=== PATIENT | female | born 1975 | race Caucasian/White ===

== ENCOUNTER → 2021-12-13 15:21 | Outpatient (CLI) | payer BC, SELFPAY ==
--- NOTE | ~2021-12-13 | US_ITS ---
EXAMINATION: US pelvic complete DATE: 12/13/2021 15:42 INDICATION: Pelvic and perineal pain Comparison:No prior studies for comparison. TECHNIQUE: Multiple transabdominal and endovaginal sonographic images of the pelvis performed. FINDINGS: The uterus is surgically absent. The right ovary is not visualized. The left ovary measures 3.8 x 2.4 x 2.4 cm. There is a minimally c omplicated left ovarian cyst measuring 2.8 x 2.3 x 2.1 cm. There are follicular changes of the left o vary.. There is no free fluid in the pelvis. There are no abnormal masses seen on either side. IMPRESSION: 1. Minimally complicated 2.8 cm left ovarian cyst containing low-level internal echoes. Reviewed, dictated and finalized at location A.
== END ==
PROVIDERS: PCP Family Medicine; Visit Provider Family Medicine
DX: R10.2 Pelvic and perineal pain (principal); N83.202 Unspecified ovarian cyst, left side
CPT/HCPCS: 76856

== ENCOUNTER 2021-12-21 08:05 | Outpatient (CLI) | payer BC, SELFPAY ==
[2021-12-21 08:25] LABS: Basophils Absolute Auto 0.1 K/mm3 (0.0-0.1); Basophils Percent Auto 0.8 % (0.2-1.2); Eosinophils Absolute Auto 0.1 K/mm3 (0-0.3); Eosinophils Percent Auto 1.9 % (0-4.4); Hematocrit 39.2 % (37.0-47.0); Hemoglobin 13.2 g/dL (12.0-15.0); Immature Granulocyte Absolute 0.02 K/mm3 (0.00-0.031); Immature Granulocyte Percent A 0.3 % (0-0.5); Lymphocytes Absolute Auto 2.68 K/mm3 (0.9-3.2); Lymphocytes Percent Auto 37.1 % (18.3-44.2); Mean Corpuscular HGB Conc 33.7 g/dl (32-36); Mean Corpuscular Hemoglobin 31.7 pg (26-34); Monocytes Absolute Auto 0.6 K/mm3 (0.1-0.6); Monocytes Percent Auto 7.6 % (2.6-8.5); Neutrophils Absolute Auto 3.8 K/mm3 (1.3-6.7); Neutrophils Percent Auto 52.3 % (45.5-73.1); Platelet Count Result 297 k/mm3 (150-375); Red Blood Count 4.17 M/mm3 (4.2-5.4); Red Cell Distribution Width 11.6 % (11.5-14.5); White Blood Count 7.2 K/mm3 (4.5-10.0)
[2021-12-21 08:37] LABS: Alanine Aminotransferase 27 U/L (6-35); Albumin Level 4.3 g/dL (3.5-5.1); Alkaline Phosphatase 75 U/L (38-126); Anion Gap 8 mmol/L (8-16); Aspartate Amino Transferase 27 U/L (14-36); Bilirubin,Total 0.7 mg/dL (0.2-1.3); Blood Urea Nitrogen 11 mg/dL (7-17); Calcium 9.1 mg/dL (8.4-10.2); Carbon Dioxide 27 mmol/L (22-30); Chloride 105 mmol/L (98-107); Cholesterol 183 mg/dL (0-200); Estimated Glomerular Filt Rate > 60; Glucose 97 mg/dL (65-110); HDL Direct 39 mg/dL; Potassium 4.2 mmol/L (3.4-5.0); Sodium 140 mmol/L (137-145); Triglycerides 77 mg/dL (<150)
[2021-12-21 08:47] LABS: LDL Cholesterol Direct 111 mg/dL
== END 2021-12-21 08:06 | disposition home or self-care (01) ==
PROVIDERS: PCP Family Medicine; Visit Provider Family Medicine
DX: Z00.00 Encounter for general adult medical examination without abnormal findings (principal)
CPT/HCPCS: 36415; 80053; 80061; 85025

== ENCOUNTER → 2022-05-30 09:53 | Outpatient (CLI) | payer BC, SELFPAY ==
--- NOTE | ~2022-05-30 | US_ITS ---
Pelvic ultrasound. Clinical History: Left ovarian cyst Technique: Realtime transabdominal and transvaginal scanning of the pelvis was performed. Color flow Doppler and Doppler spectral analysis were performed. Findings: The uterus is absent, compatible prior hysterectomy. The right ovary measures 2.9 x 2.0 x 2.4 cm. No significant right ovarian or adnexal mass is seen. The left ovary measures 2.4 x 2.3 x 2.1 cm. No significant left ovarian or adnexal mass is seen. There is no evidence of free fluid in the cul de sac. Impression: Status post hysterectomy, otherwise unremarkable exam. Reviewed, dictated and finalized at location . Impression: Status post hysterectomy, otherwise unremarkable exam.
== END ==
PROVIDERS: PCP Family Medicine; Visit Provider Obstetrics & Gynecology
DX: N83.202 Unspecified ovarian cyst, left side (principal)
CPT/HCPCS: 76830; 76856

== ENCOUNTER 2023-02-24 01:14 | Day surgery (SDC) | payer BC, SELFPAY ==
[2023-01-13 12:14] VITALS: BMI 24.7
--- NOTE | 2023-02-06 12:38 | PC.NURSE ---
Pt denies changes to home meds or health history since previous PAT call completed on 01/13/23.
--- NOTE | 2023-02-21 09:19 | SUR.PREOP ---
Patient called regarding upcoming procedure. Message left on pt's voicemail regarding appointment times.
[2023-02-24 06:15] VITALS: BP 150/84; PULSE 80; RESP 18; TEMP 36.3; O2SAT 98; BMI 23.3
[2023-02-24] MEDS: LACTATED RINGERS 1,000 ML 150 ML IV CONT (06:37)
--- NOTE | 2023-02-24 07:00 | P.PNAN_ITS ---
Anes - Initial Pre Proc Eval Procedure: Operation Date: 02/24/23 07:30 Proposed Procedures p Colonoscopy - Anand Amezcua MD Date/Time: 02/24/23 07:00 Surgeon: Anand Amezcua MD Pre Op Diagnosis: IBS-D, Family hx colon polyps Patient Data Age: 47 Gender: F Height: 1.57 m Weight: 57.8 kg Last Vital Signs Temp 36.3 C L 02/24/23 06:15 Pulse 80 02/24/23 06:15 Resp 18 02/24/23 06:15 BP 150/84 H 02/24/23 06:15 Pulse Ox 98 02/24/23 06:15 O2 Del Method Room Air 02/24/23 06:15 Allergies Allergy/AdvReac Type Severity Reaction Status Date / Time sulfamethoxazole Allergy Intermediate HIVES Verified 02/24/23 06:23 [From Bactrim] trimethoprim [From Bactrim] Allergy Intermediate HIVES Verified 02/24/23 06:23 Home Medications Medication Instructions Recorded Confirmed Type multivit-iron 18 mg-folic acid 400 1 tablet PO DAILY 01/13/23 02/24/23 History mcg-calcium 500 mg-minerals tablet (Women's One Daily) Patient hx anesthesia problems: none Family hx anesthesia problems: none Results Review: All pre-operative results and documents have been reviewed as part of the pre- operative evaluation. [facility] Family History Family History Father Hypertension Sibling Hypertension Social History Social History Social History: Caffeine- tea Years smoked: 10 Smoking status: Light tobacco smoker Tobacco type: cigarettes Alcohol intake: current Alcohol use details: maybe 2 drinks per month Substance use: current Substance use type: marijuana Other substance usage details: gummies to help sleep at night Last use: last night Lack of Transportation: No Lack of Food: Never True Current Housing: I Have Housing Concerned About Future Housing: No Difficulty Paying Gas/Electric Bills: No Difficulty Paying for Meds: No Currently Unemployed: No Education: High School Diploma/GED Difficulty w/ Childcare or Family Care: No Living arrangements: with family Spiritual care concerns: No Anes - Eval Final PreProcedure Day of Procedure 02/24/23 07:00 Patient weight: normal Heart: regular rate and rhythm Lungs: clear to auscultation Airway: Mallampati scale class II Neurological: alert and oriented Last oral intake: >/= 8 hours ASA classification: II Emergent: no Anesthetic plan: proceed Anesthesia type and monitoring: general GIVS and standard monitoring Results Review: All pre-operative results and documents have been reviewed as part of the pre- operative evaluation. Informed Consent: The patient's anesthetic plan and its attendant risks and benefits were discussed with the patient/family/POA. Questions were solicited and answers provided to the satisfaction of the patient/family/POA.
--- NOTE | 2023-02-24 07:32 | PM.HPGS ---
History of Present Illness History of Present Illness Consent: Risks, benefits, and alternatives have been discussed and questions answered. Patient agrees to proceed with procedure. Chief complaint: IBS-D, Family hx colon polyps Narrative: Cari Diamond is a 47 year old female here for screening colonoscopy Review of Systems Constitutional: Constitutional: Denies headache(s) and Denies weakness Eyes: Eyes: Denies blurry vision ENT: Reports Normal hearing present, Denies headache(s) and Denies neck pain Cardiovascular: Cardiovascular: Denies chest pain and Denies dyspnea Respiratory: Respiratory: Denies dyspnea Gastrointestinal: Gastrointestinal: Reports no additional gastrointestinal complaints Genitourinary: Genitourinary: Denies dysuria Musculoskeletal: Musculoskeletal: Denies neck pain Integumentary/Breasts: Skin/Breast: Denies dry skin Neurologic: Reports Normal hearing present, Denies headache(s) and Denies weakness Psychiatric: Psychiatric: Denies anxiety Endocrine: Endocrine: Denies change in body appearance Hematologic/Lymphatic: Hematologic/Lymphatic: Denies easy bleeding Allergic/Immunologic: Allergic/Immunologic: Denies urticaria PMFSH Past Medical History Medical History (Updated 02/24/23 @ 07:33 by Anand Amezcua MD) Colon cancer screening Family History Family History Father Hypertension Sibling Hypertension Social History Social History Social History: Caffeine- tea Years smoked: 10 Smoking status: Light tobacco smoker Tobacco type: cigarettes Alcohol intake: current Alcohol use details: maybe 2 drinks per month Substance use: current Substance use type: marijuana Other substance usage details: gummies to help sleep at night Last use: last night Lack of Transportation: No Lack of Food: Never True Current Housing: I Have Housing Concerned About Future Housing: No Difficulty Paying Gas/Electric Bills: No Difficulty Paying for Meds: No Currently Unemployed: No Education: High School Diploma/GED Difficulty w/ Childcare or Family Care: No Living arrangements: with family Spiritual care concerns: No Meds Home Medications and Allergies Home Medications Medication Instructions Recorded Confirmed Type multivit-iron 18 mg-folic acid 400 1 tablet PO DAILY 01/13/23 02/24/23 History mcg-calcium 500 mg-minerals tablet (Women's One Daily) Allergies Allergy/AdvReac Type Severity Reaction Status Date / Time sulfamethoxazole Allergy Intermediate HIVES Verified 02/24/23 06:23 [From Bactrim] trimethoprim [From Bactrim] Allergy Intermediate HIVES Verified 02/24/23 06:23 Vital Signs Vital Signs - 24 hr 02/24/23 06:15 Temperature 97.3 F L Pulse Rate 80 Respiratory Rate 18 Blood Pressure 150/84 H Pulse Oximetry 98 Oxygen Delivery Room Air Exam Const: General: comfortable and no acute distress HENMT: Face/Nose/Sinus: Normal nares present Eyes: General: appearance normal, both eyes and all related structures Neck: Neck: no JVD Resp: Auscultation: clear to auscultation bilaterally Cardio: Rate: regular rate Rhythm: regular rhythm GI: Inspection: non-distended GI Palp: Yes Soft to palpation Skin: General skin exam: normal color Neuro: General: gait normal Speech: normal speech Extrem: General: normal to inspection Psych: Mental Status: mental status grossly normal Assessment and Plan Assessment and plan (1) Colon cancer screening: Code(s): Z12.11 - Encounter for screening for malignant neoplasm of colon Status: Acute Assessment and Plan: colonoscopy
[2023-02-24 07:48] VITALS: BP 153/86; PULSE 73; RESP 17; O2SAT 98
[2023-02-24 07:58] VITALS: BP 132/78; PULSE 77; RESP 19; O2SAT 100
[2023-02-24 08:08] VITALS: BP 151/80; PULSE 66; RESP 16; O2SAT 99
== END 2023-02-24 08:15 | disposition home or self-care (01) ==
PROVIDERS: PCP Family Medicine; Visit Provider Internal Medicine Gastroenterology
PROC: 0DJD8ZZ Inspection of Lower Intestinal Tract, Via Natural or Artificial Opening Endoscopic (ICD-10-PCS; CPT 45378; principal; 2023-02-24 07:30)
DX: Z12.11 Encounter for screening for malignant neoplasm of colon (principal); K57.30 Diverticulosis of large intestine without perforation or abscess without bleeding; K64.8 Other hemorrhoids; F17.210 Nicotine dependence, cigarettes, uncomplicated; F12.90 Cannabis use, unspecified, uncomplicated; K58.0 Irritable bowel syndrome with diarrhea; Z83.719 Family history of colon polyps, unspecified
CPT/HCPCS: 45378; J2704; J7120

== ENCOUNTER 2024-11-12 10:16 | Outpatient (CLI) | payer BC, SELFPAY ==
--- NOTE | ~2024-11-12 | US_ITS ---
ULTRASOUND ABDOMEN LIMITED (RIGHT UPPER QUADRANT) Clinical History: unspecified abdominal pain Comparison: None Technique: Right upper quadrant sonography Findings: Liver: Normal size. Normal echotexture. No intrahepatic biliary ductal dilatation. Normal hepatopedal flow main portal vein. Common Duct: Normal caliber. 3 mm. Gallbladder: No stones. No wall thickening. No pericholecystic fluid. 4 mm polyp; no surveillance indicated per guidelines given small size. Pancreas: Unremarkable. Retrohepatic IVC: Unremarkable. IMPRESSION: 1. No acute findings. Reviewed, dictated and finalized at location R. IMPRESSION: 1. No acute findings.
== END 2024-11-12 10:17 | disposition home or self-care (01) ==
PROVIDERS: PCP Family Medicine; Visit Provider Family Medicine
DX: R10.9 Unspecified abdominal pain (principal); R11.0 Nausea; R68.81 Early satiety
CPT/HCPCS: 76705

== ENCOUNTER 2024-12-27 01:30 | Day surgery (SDC) | payer BC, SELFPAY ==
--- OUTSIDE RECORDS SUMMARY | 2022-09-05 04:55 | XMS_ITS | Continuity of Care Document ---
Author Organization [facility] Address [address] [place] [address] Phone Care Team Providers Care Property Management Assistant Name Role Phone Phuc Nayak MD Unavailable Unavailable Allergies, Adverse Reactions, Alerts Substance Reaction Status Criticality No Known Allergies Active No Inform ation Medications Medication Instructions Dosage Effective Dates (start - stop) Status Comments ofloxacin 0.3 % eye drops - Active amitriptyline 10 mg tablet TAKE 2 TABLETS BY MOUTH EVERY DAY AT BEDTIME - Active amoxicillin 500 mg capsule TAKE 1 CAPSULE BY MOUTH EVERY 8 HOURS FOR 7 DAYS - Active Procedures Procedure Date RADEX KNE 3 VIEWS OFFICE/OUTPATIENT VISIT NEW Betamethasone acet&sod phosp DRAIN/INJECT JOINT/BURSA Betamethasone acet&sod phosp DRAIN/INJECT JOINT/BURSA Advance Directives Directive Yes / No Effective Date File Name No Information Encounters Encounter Description Practice Location Reason(s) For Visit Diagnoses Date Provider Providers Copied on Encounter [facility], [address], [place], [address], [place] tel:[phone] [facility] No Information 3 Malini Friend. [address], [place], [place], [id number] . tel: [phone] OFFICE/OUTPA TIENT VISIT NEW [facility], [address], [place], [address], [place] tel:[phone] [facility] Pain in both knees, unspecified chronicityOste oarthritis of patellofemoral joints of both kneesBody mass index [BMI] 25.0-25.9, adult 3 Ted Bennett. [id number], [place], [place], [id number] . tel: [phone] Referring Provider: Basilia Eugene, PERMANENTLY CLOSED [address], [place], [address]. tel:[phone] Family History Family Member Type Diagnosis Age At Onset Mother Problem (finding) Brother Problem Alive and well Sister Problem Alive and well Mother Problem Leukemia Father Problem Alive and well Brother Problem Hypertension Payers Payer name Insurance type Covered democrat ID Authoriza tion(s) Blue Preferred POS/PPO/HMO E2 [id number] Social History Type Description Quantity Date Captured Comments Sex Female Smoking Status No Information Chief Complaint And Reason For Visit No Information Reason For Referral Reason For Referral No Information Plan Of Treatment Date Type Action Status Goal Tobacco cessation counseling completed Goal Dietary management education , guidance, and counseling completed Referral Ordered: RADEX KNE 3 VIEWS Bilateral ordered History Of Present Illness Encounter Date Complaint History Of Prese nt Illness No Information Functional Status Date Functional Assessmen t No Information Instructions Date Instruction Additional Infor mation Dietary management e ducation, guidance, and counseling Related to Body mass index [BMI] 25.0-25.9, adult Assessments Type Assessment Date No Information Patient Care Teams Name Effective Dates (start - stop) Status Members No Information
--- NOTE | 2024-12-17 15:03 | SUR.PREOP ---
[facility] has started construction of its new state of the art ER which will open Spring 2026. With this, we anticipate parking may be a challenge for some our surgical patients and families. Parking spaces are limited but are available for all Surgical, obstetrics, and ER patients sharing this lot. If you arrive and find you are having a hard time finding a parking space, please note that we understand the challenges, please drive around the hospital and park near Hospital Entrance 1. When you enter this entrance, you can ask a volunteer to direct or take you back to the surgical waiting area to check in. We appreciate everyone?s understanding of these expected challenges while we build for your future. Report to the Outpatient Waiting Room, entrance under the green pavilion located off [address], at time _730am on date __12/27/24 . Planned Procedure Time: __930am____.? Time changes happen often and if your time is changed the preop area will call you the afternoon before. - You and your visitor will be asked to self-screen and do not enter if you have any COVID symptoms. Please call surgeon if you need to reschedule. - A mask is optional within the hospital at this time. Patients may have clear liquids (water, carbonated beverages, clear teas, apple juice) until 3 hours prior to surgery with a maximum of 20 ounces. - No food from midnight until time of surgery and no smoking, or chewing tobacco (or any form of nicotine). No chewing gum, candy or mints. Take only the following medications with a SIP of water on the morning of surgery: ____None DO NOT STOP ANY OF YOUR OTHER PRESCRIPTION MEDICATIONS PRIOR TO SURGERY EXCEPT THE FOLLOWING Hold all vitamins and supplements for 3 days per anesthesiologist. Medications to discontinue per physician N/a Date to take last dose____12/23/24 Please no make-up, nail guinean, hairspray, perfume, deodorant, or body powder the day of surgery.? No jewelry (including any body piercings) or valuables the day of surgery, leave them at home.? Please take a shower or bath the night before, or the morning of, surgery with an antibacterial soap.? Wear comfortable, loose fitting clothing.? - Jewelry must be removed prior to entering the operating room.? Rings and piercings that are not removed may be cut off. - The hospital will not accept responsibility for valuables.? - Please leave all valuables, including medications, at home the day of surgery. If you are going home after surgery, a licensed straight truck driver must drive you home.? - NO public transportation without another adult if you receive anesthesia. - We recommend that an adult stay with you for 24 hours following discharge. - We also recommend that you do not drive, make important decision, drink alcoholic beverages, or take any drugs that were not prescribed by your health care provider for at least 24 hours after your discharge time. Follow any additional instructions given to you from your surgeon. Telephone instructions given to ___Cari and asked if any additional questions and then verbalized understanding. Patient advised to call surgeon office or pre surgery nurse liaison [phone] if any additional questions.
[2024-12-17 15:09] VITALS: BMI 24.7
[2024-12-27] VITALS (10 sets, daily range): BP systolic 119–194; BP diastolic 59–93; PULSE 65–117; RESP 14–20; TEMP 36.8; O2SAT 96–100; BMI 23.2
--- OUTSIDE RECORDS SUMMARY | 2024-12-27 01:33 | XMS_ITS | Clinical Summary ---
Author Organization [facility] Address [address] [place] [address] Care Team Providers Care Panel Sewer Name Role Phone Basilia Avendano MD Primary Care Provider + Robel Charlton MD Unavailable [phone] Allergies No known active allergies Medications multivitamin with iron tablet Take 1 tablet by mouth daily Active Active Problems Problem Noted Date Diagnosed Date Knee pain 09/19/2011 Surgical History Surgery Date Site/Laterality Comments ROBOTIC ASSISTED HYSTERECTOMY 03/10/2013 - 03/09/2014 RONA FARRAR. menorrhagia/dysmenorrhe a. path benign LAPAROSCOPY 03/10/2010 - 03/09/2011 pelvic pain. path benign/ no endo TUBAL LIGATION Bilateral HYSTERECTOMY Family History Medical History Relation Name Comments Arthritis Mother Breast cancer Neg Hx Ovarian cancer Neg Hx Relation Name Status Comments Mother Social History Tobacco Use Types Packs/Day Years Used Date Smoking Tobacco: Every Day Cigarettes Personal Safety Answer Date Recorded Getting School Help Needed Not on file 03/05 Comments No Sex and Gender Information Value Date Recorded Sex Assigned at Not on file Legal Sex Female 9:59 AM TRUCK GUARD Gender Identity Not on file Sexual Orientation Not on file Obstetrics History Para Term AB IAB SAB Ectopic Multiple Livin g Live Births 2 1 1 1 Date Outcome GA Total Labor Labor/2nd/3rd Weight Sex Type Anes PTL Trinidad A1 A5 Name Clin Term Comments /hyst LTR 6% Last Filed Vital Signs Vital Sign Reading Time Taken Comments Blood Pressure 118/64 08/13/2023 1:04 PM CDT Pulse 0 11/08/2015 2:30 PM CDT Temperature 36.8 C (98.2 F) 02/08/2014 1:59 PM TRUCK GUARD Respiratory Rate - - Oxygen Saturation 95% 02/08/2014 1:59 PM TRUCK GUARD Inhaled Oxygen Concentration - - Weight 61.2 kg (135 lb) 08/13/2023 1:04 PM CDT Height 157.5 cm (5' 2) 08/13/2023 1:04 PM CDT Body Mass Index 24.69 08/13/2023 1:04 PM CDT Plan of Treatment Health Maintenance Due Date Last Done Comments Colon Cancer Screening-Colonoscopy 1975 Depression Screening 1975 Hepatitis C Screening 1975 DTaP/Tdap/Td Vaccine (6 - Tdap) 1988 08/06/1983, 10/22/1979, 07/07/1978, Additional history exists Hepatitis B Screening 12/30/1995 Pneumococcal vaccine <65 (1 of 2 - PCV) 1996 Regular Well Visit/Exam 18-64 08/12/2024 08/13/2023, 05/03/2020 Influenza Vaccine (#1) 2024 , 12/07/2017, 01/09/2017, Additional history exists Breast Cancer Screening-Mammogram 12/14/2024 12/15/2023, 12/23/2022, 09/21/2021, Additional history exists Cervical Cancer Screening Discontinued 05/03/2020, HPV Vaccines Aged Out No longer eligi ble based on patient's age to complete this topic Procedures Procedure Name Priority Date/Time Associated Diagnosis Comments SCREENING MAMMOGRAM BILATERAL W CHRIS Schedule Routine, Read Routine (OP Routine) 12/15/2023 8:33 AM CDT Encounter for screening mammogram for malignant neoplasm of breast THINPREP PAP WITH HPV Routine 05/03/2020 4:59 PM TRUCK GUARD Well woman exam from Last 3 Months or Most Recently Relevant to Health Maintenance Results * (ABNORMAL) Screening Mammogram Bilateral W Chris (12/15/2023 8:33 AM CDT) Anatomical Region Laterality Modality Breast Bilateral Mammography Impressions 12/15/2023 8:49 AM CDT BI-RADS ATLAS category (overall): 0 - Incomplete: Needs Additional Imaging Evaluation 1. Indeterminate right breast asymmetries. Further evaluation with diagnostic right mammography and possible diagnostic right breast ultrasound is recommended. 2. No mammographic evidence of malignancy in the left breast. Routine screening mammography of the left breast is recommended in 1 year. The patient has been or will be contacted. Narrative 12/15/2023 8:49 AM CDT Screening Mammogram Bilateral W Chris: 12/15/23 The study was acquired using full field digital technology and interpreted from soft copy. 2D digital mammographic views, as well as 3D digital tomosynthesis were performed in the CC and MLO projections. CLINICAL: Encounter for screening mammogram for malignant neoplasm of breast. No relevant medical history has been documented for this patient. History of breast cancer in Neg Hx. COMPARISONS: 12/23/2022 Screening Mammogram Bilateral W Chris 09/21/2021 Screening Mammogram Bilateral W Chris 07/21/2020 Screening Mammogram Bilateral W Chris 05/06/2019 US Breast Right Limited 05/06/2019 Diagnostic Mammogram Right W Chris 04/16/2019 Screening Mammogram Bilateral W Chris BREAST TISSUE: The breasts are heterogeneously dense, which may obscure small masses. FINDINGS: There are indeterminate asymmetries in the right breast. There is no new suspicious finding in the left breast on mammogram. Robel Charlton MD IMG MAMMO PROCEDURES Fi nal Result * ThinPrep Pap with HPV (05/03/2020 4:59 PM TRUCK GUARD) Pap test 05/03/2020 4:59 PM TRUCK GUARD 05/05/2020 9:05 AM TRUCK GUARD Narrative 05/09/2020 10:21 AM TRUCK GUARD [facility] Department of Pathology [address] [place] [address], [place] [address] Final Report with Addendum Patient Name: CARI GUNDERSON V. Address: [address] [place] [address] Gender: F : 1975 (Age: 44) Service: Laboratory Location: Lab [facility] #: [id number] Patient Type: YARA Damian Lab Taken: 05/03/2020 Received: 05/05/2020 Accessioned:: 05/08/2020 Reported: 05/09/2020 Physician(s): Robel Charlton M.D. [facility] Diagnosis: Source of Specimen: Screening ThinPrep Imaged Pap w/HPV Specimen Adequacy: - Specimen satisfactory for evaluation (vaginal pap) General Category: - Negative for intraepithelial lesion or malignancy RILEY Chau(ASCP) Report Electronically Reviewed and Signed Out By RILEY Chau(ASCP) 05/09/2020 10:21:19 Addenda: HPV Test Interpretation NEGATIVE for types 16, 18, 31, 33, 35, 39, 45, 51, 52, 56, 58, 59, 66 and 68. Test performed utilizing Gen-Probe Aptima assay. RILEY Richards(ASCP) Report Electronically Reviewed and Signed Out By RILEY Richards(ASCP) 05/08/2020 14:18:59 Specimen(s) Received: A: Screening ThinPrep Imaged Pap w/HPV Clinical History: Menstrual History: Hysterectomy The Pap test is a screening test used to aid in the detection of cervical cancer and its precursors. It should not be the sole means by which malignant and premalignant lesions are diagnosed. Both false negative and false positive results may occur. It also has poor sensitivity for the detection of endometrial lesions and should not be used to evaluate suspected endometrial abnormalities. For these reasons it is most important to obtain Pap tests at regular intervals. The performance characteristics of some immunohistochemical stains, fluorescence in-situ hybridization tests and immunophenotyping by flow cytometry cited in this report (if any) were determined by the Surgical Pathology Department at [facility] as part of an ongoing manager of quality program and in compliance with federally mandated regulations drawn from the Clinical Laboratory Improvement Act of 1988 (CLIA '88). Some of these tests rely on the use of analyte specific reagents and are subject to specific labeling requirements by the US Food and Drug Administration. Such diagnostic tests may only be performed in a facility that is certified by the Department of Health and Human Services as a high complexity laboratory under CLIA '88. The FDA has determined that such clearance or approval is not necessary. This test is used for clinical purposes. It should not be regarded as investigational or for research. Nevertheless, federal rules concerning the medical use of analyte specific reagents require that the following disclaimer be attached to the report: This test was developed and its performance characteristics determined by the Surgical Pathology Department [facility]. It has not been cleared or approved by the U. S. Food and Drug Administration. Robel Charlton MD LAB CYTOLOGY ORDERABLES Final Result from Last 3 Months or Most Recently Relevant to Health Maintenance Insurance CHOICE [facility] PPO [place] [employer] [place] [employer] [place] Care Teams Panel Sewer Relationship Specialty Start Date End Date Basilia Avendano MD PCP - General 03/25/19 Robel Charlton MD [address] [place] [address] [place] [id number] Consulting Physician Obstetrics and Gynecology 09/21/21
--- OUTSIDE RECORDS SUMMARY | 2024-12-27 01:33 | XMS_ITS | Clinical Summary ---
Author Organization [facility] Address [address] [place] [address] Care Team Providers Care Keeper Head Name Role Phone Unavailable Primary Care Provider Unavailabl e Source Comments [facility],non-owned Affiliates and Associated Physician Practices is amultiple site organization consisting of ambulatory clinics and hospital sitesin [place], [place], [place] and [place]. This disclosure is being madepursuant to the Care Everywhere program and may not contain all information available regarding this patient. Last updated 17.[facility] Immunizations Immunization Administration Dates Next Due INFLUENZA VACCINE, QUADR. (F LUZONE; FLULAVAL; FLUARIX; AFLURIA QUADRIVALENT; 6MO+), 0.5 ML (IIV4) 01/09/2017 Social History Tobacco Use Types Packs/Day Years Used Date Smoking Tobacco: Never Assessed Comments Unknown Sex and Gender Information Value Date Recorded Sex Assigned at Not on file Legal Sex Female 12:39 PM CDT Gender Identity Not on file Sexual Orientation Not on file Plan of Treatment Health Maintenance Due Date Last Done Comments COLOGUARD (AGES 45-75) - COL ON CA SCREENING 1977 COLON MONITORING 1977 COLONOSCOPY - COLON CA SCREENING 1977 CT COLONOGRAPHY - COLON CA SCREENING 1977 Colorectal Cancer Screening 1977 FIT - COLON CA SCREENING 1977 FLEX SIG - COLON CA SCREENING 1977 LIPID TESTING 1977 MAMMOGRAM 1977 HIV SCREENING 1992 HEPATITIS C SCREENING 12/25/1995 DTAP/TDAP/TD VACCINES (1 - Tdap) 1996 HEPATITIS B VACCINE (1 of 3 - 19+ 3-dose series) 1996 DEPRESSION SCREENING 03/10/2024 COVID-19 VACCINE (2023-2 5 season) 2024 INFLUENZA VACCINE (#1) 2024 01/09/2017 ZOSTER VACCINE (1 of 2) 12/30/2027 HIB VACCINE Aged Out No longer eligi ble based on patient's age to complete this topic HPV VACCINE Aged Out No longer eligi ble based on patient's age to complete this topic MENINGOCOCCAL (Group B) VACC INE SHARED DECISION-MAKING Aged Out No longer eligibl e based on patient's age to complete this topic MENINGOCOCCAL GROUPS A/C/Y/W VACCINE Aged Out No longer eligible b ased on patient's age to complete this topic PNEUMOCOCCAL VACCINE Aged Out No long er eligible based on patient's age to complete this topic Insurance SINDY
--- OUTSIDE RECORDS SUMMARY | 2024-12-27 01:33 | XMS_ITS | Clinical Summary ---
Author Organization [facility] Address [address] [place] [id number] Care Team Providers Care Audio Visual Coordinator Name Role Phone Unavailable Primary Care Provider Unavailabl e Social History Tobacco Use Types Packs/Day Years Used Date Smoking Tobacco: Never Assessed Comments Unknown Sex and Gender Information Value Date Recorded Sex Assigned at Not on file Legal Sex Female 7:16 PM CDT Gender Identity Not on file Sexual Orientation Not on file Last Filed Vital Signs Vital Sign Reading Time Taken Comments Blood Pressure 153/74 03/14/2015 8:38 AM HOSPITAL ADMITTING CLERK Pulse 74 03/14/2015 8:38 AM HOSPITAL ADMITTING CLERK Temperature - - Respiratory Rate - - Oxygen Saturation - - Inhaled Oxygen Concentration - - Weight 56.7 kg (125 lb) 03/14/2015 8:30 AM HOSPITAL ADMITTING CLERK Height 157.5 cm (5' 2) 03/14/2015 8:30 AM HOSPITAL ADMITTING CLERK Body Mass Index 22.86 03/14/2015 8:30 AM HOSPITAL ADMITTING CLERK Plan of Treatment Health Maintenance Due Date Last Done Comments Cervical Cancer Screening Pa p Smear (Age 30 to 64) Every 3 Years 1977 Colorectal Cancer Screening Colonoscopy (10 Years) 1977 Annual Physical 1980 Hepatitis C 12/30/1995 DTaP, Tdap and Td Vaccines ( 1 - Tdap) 1996 Hepatitis B Vaccines (1 of 3 - 19+ 3-dose series) 1996 Cervical Cancer Screening Pa p with HPV Testing (Age 30 to 64) Every 5 Years 12/30/2007 Cervical Cancer Screening with HPV 12/30/2007 Mammogram Screening 2017 COVID-19 Vaccine (2023-2 5 season) 2024 Influenza Adult (#1) 2024 Hepatitis A Vaccines Aged Out No long er eligible based on patient's age to complete this topic Meningococcal B Vaccine Aged Out No l onger eligible based on patient's age to complete this topic Meningococcal Vaccine Aged Out No sarbjit blanca eligible based on patient's age to complete this topic Pneumococcal Vaccine: Pediat rics (0 to 5 Years) and At-Risk Patients (6 to 49 Years) Aged Out No longer eligible b ased on patient's age to complete this topic RSV Immunizations Under 20 Months Aged Out No longer eligible based on patient's age to complete this topic
--- OUTSIDE RECORDS SUMMARY | 2024-12-27 01:33 | XMS_ITS | Patient Health Record ---
Author Organization [facility] Address [address] [place], [place] [id number] Care Team Providers Care Bezel Cutter Name Role Phone BRENNAN Epstein Unavailable [phone] Basilia Avendano Unavailable Unavailable Reason For Referral No Information Medications Medication SIG (Take, Route, Frequency, Duration) Notes Start Date End Date Status sertraline 100 MG Oral Tablet [Zoloft] ORAL sertraline 100 MG Oral Tablet [Zoloft]Original Medicationsertraline 100 MG Oral Tablet [Zoloft] *Reorder from [facility] for eRx and Interaction Alerts* 11/04/2018 Active Plan Of Treatment No Information Insurance Providers Payer Name Payer Address Payer Phone Subscriber Number Group Number Insured Name Patient Relationship to Insured Coverage Start Date Coverage End Date [facility] ([facility]) ATTN CLAIMS [address] [place] [address] [id number] EMILIANO GUNDERSON Self - patient is the insured
[2024-12-27] MEDS: ACETAMINOPHEN 500 MG TABLET 1000 MG PO (08:00)
[2024-12-27] MEDS: KETOROLAC 15 MG/ML VIAL (*BKC) IV PUSH ×2 (08:18→10:25)
--- NOTE | 2024-12-27 08:29 | P.PNAN_ITS ---
Anes - Initial Pre Proc Eval Procedure: Operation Date: 12/27/24 09:30 Proposed Procedures p Transanal Hemorrhoidal Dearterialization Procedure - Grabiel Manrique MD Date/Time: 12/27/24 08:29 Surgeon: Grabiel Manrique MD Pre Op Diagnosis: hemorrhoids Patient Data Age: 48 Gender: F Height: 1.57 m Weight: 57.7 kg Last Vital Signs Temp 36.8 C 12/27/24 07:40 Pulse 65 12/27/24 07:40 Resp 16 12/27/24 07:40 BP 139/75 12/27/24 07:40 Pulse Ox 99 12/27/24 07:40 Allergies Allergy/AdvReac Type Severity Reaction Status Date / Time sulfamethoxazole (From Allergy Intermediate HIVES Verified 12/27/24 08:16 Bactrim) trimethoprim (From Bactrim) Allergy Intermediate HIVES Verified 12/27/24 08:16 Home Medications ?Medication ?Instructions ?Recorded ?Confirmed ?Type multivit-iron 18 mg-folic acid 400 1 tablet PO DAILY 1 03/15/22 12/27/24 History mcg-calcium 500 mg-minerals tablet (Women's One Daily) ibuprofen-diphenhydramine citrate 1 cap PO HS knee kenneth n and sleep 12/17/24 12/27/24 History 200 mg-38 mg tablet (Ibuprofen PM) psyllium husk 0.4 gram capsule 0.4 g PO DAILY 12/17/24 12/27/24 History (Metamucil) Patient hx anesthesia problems: none Family hx anesthesia problems: none Results Review: All pre-operative results and documents have been reviewed as part of the pre-operative evaluation. [facility] Past Medical History Medical History (Updated 12/27/24 @ 08:29 by Ever Curtis MD) Internal hemorrhoids with complication Current smoker Generalized anxiety disorder Surgical History Surgical History H/O vaginal hysterectomy Family History Family History Father Hypertension Sibling Hypertension Social History Social History Social History: Caffeine- tea Smoking packs per day: 1 Smoking cigarettes per day: 20.0 Years smoked: 10 Smoking pack-years: 10.00 Smoking status: Light tobacco smoker Tobacco type: cigarettes Alcohol intake: current Alcohol use details: maybe 2 drinks per month Substance use: current Substance use type: marijuana Other substance usage details: gummies to help sleep at night Last use: last night Do You Feel Safe in your Home?: Yes Lack of Transportation: No Lack of Food: Never True Current Housing: I Have Housing Concerned About Future Housing: No Difficulty Paying Gas/Electric Bills: No Difficulty Paying for Meds: No Currently Unemployed: No Education: High School Diploma/GED Difficulty w/ Childcare or Family Care: No Living arrangements: with family Spiritual care concerns: No Anes - Eval Final PreProcedure Day of Procedure 12/27/24 08:29 Patient weight: normal Heart: regular rate and rhythm Lungs: clear to auscultation Airway: Mallampati scale class II Neurological: alert and oriented Last oral intake: >/= 8 hours ASA classification: II Emergent: no Anesthetic plan: proceed Anesthesia type and monitoring: general ETT and standard monitoring Results Review: All pre-operative results and documents have been reviewed as part of the pre- operative evaluation. Informed Consent: The patient's anesthetic plan and its attendant risks and benefits were discussed with the patient/family/POA. Questions were solicited and answers provided to the satisfaction of the patient/family/POA.
[2024-12-27] MEDS: LACTATED RINGERS 1,000 ML 30 ML IV CONT ×2 (08:49→11:01)
--- NOTE | 2024-12-27 08:56 | WPDHPUPDATE1 ---
History and Physical Update Update Date/Time: 12/27/24 08:56 History and Physical has been reviewed, including an updated exam of the patient. There are NO changes in the patient's condition. Risks, benefits, and alternatives have been discussed and questions answered. Patient agrees to proceed with procedure.
[2024-12-27] MEDS: ceFAZolin 2 GM in SODIUM CHLORIDE 0.9% IV 50 ML 100 ML IVPB (09:13)
[2024-12-27] MEDS: LIDO 1%/EPINEPHRINE 1:100,000 50 ML VIAL (09:52)
[2024-12-27] MEDS: fentaNYL CITRATE INJ (*CRX) 100 MCG/2 ML VIAL 25 MCG IV PUSH ×2 (11:32→11:35)
[2024-12-27] MEDS: oxyCODONE HCL (*CRX) 5 MG TAB IR PO (12:35)
--- NOTE | 2024-12-27 16:46 | P.OP_ITS ---
Procedure Note - Detailed Date of Procedure 12/27/24 Pre-op Diagnosis Grade 3 symptomatic internal hemorrhoids Post-op Diagnosis Same Procedure Performed Trans anal hemorrhoidal dearterialization (THD) procedure with mucosal proctopexy Surgeon Grabiel Manrique MD Anesthesia General Indications Patient is a 48-year-old female who presents with fairly frequent complaints of having pain and drainage from her internal hemorrhoids. She has minimal bleeding. States she has pain with bowel movements. On examination she has no evidence of anal fissures. She had grade 3 internal hemorrhoids at the anterior and posterior midline positions with the patient prone. She presents now for a THD procedure. Findings The patient had grade 3 internal hemorrhoids at the 12 o'clock and 6 o'clock positions with the patient prone. She had a smaller grade 2 internal hemorrhoid at the 9 o'clock position as well. None of these hemorrhoids were thrombosed. No anal canal masses or distal rectal masses were seen on evaluation. Description of Procedure After informed consent was obtained patient was brought to the operating room where she was placed under general endotracheal anesthesia on the gurney and then turned onto the prone sue-knife position on the operating table. Care was taken make sure all the pressure points well padded. The buttocks were then taped apart to expose the perianal region in the areas prepped and draped usual sterile fashion. A time-out was then performed correctly identifying the patient as well as procedure to be performed. She was given perioperative IV antibiotics. I 1st started by gently dilating the anal sphincters with a well lubricated anal speculum. I performed a circumferential evaluation of the distal rectum and anal canal. The patient had grade 3 nonthrombosed internal hemorrhoids located at the 12 o'clock and 6 o'clock positions. A smaller grade 2 internal hemorrhoid was noted at the 9 o'clock position. I then proceeded to use the specialized THD speculum with the Doppler probe attached to identify the biphasic arterial Doppler signals at the 1 o'clock, 3 o'clock, 5 o'clock, 7 o'clock, and 11 o'clock positions where the terminal branches of the hemorrhoi ofelia arteries were located. A 2-0 Vicryl suture was then placed to suture ligate these terminal arterial branches at these positions by placing the needle dedicated intermodal truck driver into the pivot point was inspected and rotating the sutures through the pre determined slot at the end of the THD speculum. The suture was then run in a nonlocking fashion gathering up the redundant mucosa and underlying dilated hemorrhoidal varicosities. The redundant tissue was fixated above the dentate line with a proctopexy at all 6 of the above mentioned positions. When this was all done I had performed a manual evaluation of the anal canal and there was no significant stricture in the anal canal. I then irrigated out the anal canal with sterile saline solution. Hemostasis was good at all the areas a proctopexy. I then proceeded to inject 1% lidocaine mixed with 0.5% Marcaine around the anal opening for perianal block. I also injected bilateral pudendal nerve blocks with the same local anesthetic mixture. The area was then cleaned and then 4x4 gauze and ABD pads were used for final dressing. Disposable underwear was also placed to hold the dressing in place. Implants None Estimated Blood Loss 25 Drains No Packing No Pathology None sent Complications No immediate complications Condition Stable Disposition PACU [facility] Billing Surgery - Charge Forward: Surgery Billing
== END 2024-12-27 13:10 | disposition home or self-care (01) ==
PROVIDERS: PCP Family Medicine; Visit Provider Surgery
PROC: (CPT 46948; principal; 2024-12-27 09:30)
DX: K64.2 Third degree hemorrhoids (principal); K64.1 Second degree hemorrhoids; F41.9 Anxiety disorder, unspecified; F17.210 Nicotine dependence, cigarettes, uncomplicated; F12.90 Cannabis use, unspecified, uncomplicated; Z79.1 Long term (current) use of non-steroidal anti-inflammatories (NSAID); Z98.890 Other specified postprocedural states
CPT/HCPCS: 46948; J0690; A9270; J1100; J1885; J2003; J2004; J2250; J2405; J2704; J3010; J7120